=== PATIENT | female | born 1990 | race Caucasian/White ===

== ENCOUNTER 2017-11-26 08:39 | Emergency (ER) | payer OTHER ==
[~2017-11-26] VITALS: Ht 154.9 cm; Wt 68.0 kg
[2017-11-26 08:43] VITALS: BP 137/86
== END 2017-11-26 10:41 | disposition home or self-care (01) ==
LOC: ER 08:40
DX: R45.851 Suicidal ideations (principal); F19.10 Other psychoactive substance abuse, uncomplicated; F15.20 Other stimulant dependence, uncomplicated
CPT/HCPCS: 99281; A4606; Z7610; Z7502